=== PATIENT | male | born 1955 | race Caucasian/White ===

== ENCOUNTER → 2018-12-31 | Outpatient (REF) | payer MEDICARE, OTHER ==
[~2018-12-31] MED LIST: ABILIFY10 M1 PO; ALENDRONATE70 MG PO; CENTRUM PO; DILANTIN100 MG PO; DILANTIN30 MG PO; DIVALPROEX500 MG PO; DONEPEZIL10 MG PO; ECONOPRED PL1 % OS; ENSURE COMPLETE NUTR PO; FISH OIL1200 M2 PO; KEPPRA1000 MG PO; OS-CAL D 250250 MG PO; PHENOBARB32.4 MG PO; SEROQUEL XR50 MG PO; SOD CHLORIDE OU; SYSTANE BALANCE 0.6% OU
== END | disposition home or self-care (01) ==
LOC: ULTRASND 08:57
PROVIDERS: ATTEND Internal Medicine Gastroenterology
DX: R94.5 Abnormal results of liver function studies (principal)

== ENCOUNTER → 2019-01-21 | Outpatient (REF) | payer MEDICARE, OTHER ==
[2019-01-21 10:47] VITALS: BP 116/59
== END | disposition home or self-care (01) ==
LOC: PO 09:49 → ORM 10:00
PROVIDERS: ATTEND Internal Medicine Gastroenterology
DX: Z01.818 Encounter for other preprocedural examination (principal); Z86.010 Personal history of colon polyps; R94.5 Abnormal results of liver function studies; R56.9 Unspecified convulsions; F20.9 Schizophrenia, unspecified; H91.90 Unspecified hearing loss, unspecified ear; H11.0 Pterygium of eye; Z98.890 Other specified postprocedural states; Z74.3 Need for continuous supervision; I49.9 Cardiac arrhythmia, unspecified

== ENCOUNTER 2019-01-23 07:45 | Day surgery (SDC) | payer MEDICARE, OTHER ==
[2019-01-23 10:15] VITALS: BP 110/58
== END 2019-01-23 10:25 | disposition home or self-care (01) ==
LOC: ENDO 07:45 → ORM 10:40 → ENDO 14:30 → ORM 14:30
PROVIDERS: ATTEND Internal Medicine Gastroenterology
PROC: 0DJD8ZZ Inspection of Lower Intestinal Tract, Via Natural or Artificial Opening Endoscopic (ICD-10-PCS; principal; 2019-01-23)
DX: R94.5 Abnormal results of liver function studies (principal); K64.4 Residual hemorrhoidal skin tags; K64.8 Other hemorrhoids; Z86.010 Personal history of colon polyps